=== PATIENT | male | born 1960 ===

== ENCOUNTER 2024-01-02 11:49 | Emergency (ER) | payer OTHER, BC ==
[2024-01-02] MEDS: Diphtheria,Pertussis(Acell),Tetanus Vaccine 0.5 ML Syringe IM ONE (13:24)
== END 2024-01-02 13:27 | disposition home or self-care (01) ==
LOC: MW.ED 11:49
DX: S09.90XA Unspecified injury of head, initial encounter (principal); S00.12XA Contusion of left eyelid and periocular area, initial encounter; S80.211A Abrasion, right knee, initial encounter; Z79.899 Other long term (current) drug therapy; Z79.84 Long term (current) use of oral hypoglycemic drugs; W01.198A Fall on same level from slipping, tripping and stumbling with subsequent striking against other object, initial encounter; Y93.89 Activity, other specified
CPT/HCPCS: 70450; 70450-26; 70486; 70486-26; 73562-26-RT; 73562-RT; 90471; 90715; 99284-25